=== PATIENT | male | born 1965 | race Caucasian/White ===

== ENCOUNTER 2024-12-28 16:31 | Emergency (ER) | payer BC ==
[2024-12-28] MEDS: Lidocaine 1% with EPINEPHrine 1:100,000 20 ML MDV INJECT ONE (17:25)
[2024-12-28] MEDS: Diphtheria,Pertussis(Acell),Tetanus Vaccine 0.5 ML Syringe IM ONE (17:41)
[2024-12-28] MEDS: Bacitracin Oint 1 GM U/D Packet TOP ONE (17:45)
== END 2024-12-28 17:47 | disposition home or self-care (01) ==
LOC: LB.ED 16:31
DX: S61.411A Laceration without foreign body of right hand, initial encounter (principal); Z23 Encounter for immunization; W26.8XXA Contact with other sharp object(s), not elsewhere classified, initial encounter; Y93.89 Activity, other specified
CPT/HCPCS: 12001; 90471; 90715; 99282; J2004; 99283